=== PATIENT | male | born 1960 | race African-American/Black ===

== ENCOUNTER 2016-03-15 09:00 | Emergency (ER) | payer OTHER, MEDICARE ==
[~2016-03-15] VITALS: Ht 200.7 cm; Wt 112.0 kg
[~2016-03-15 09:00] MED LIST: AMLODIPINE10 MG PO; APAP325 MG PO; APRESOLINE50 MG PO; ASPIR 8181 MG PO; ASPIRIN CHILDRE81 MG PO; ATORVASTATIN CA80 MG PO; FOLIC ACID 1 MG PO; FUROSEMIDE20 MG PO; GLUCOPHAGE500 MG PO; HYDRODIURIL 2525 MG PO; HYDROMORPHONE HC2 MG PO; IBUPROFEN800 MG PO; LABETALOL HYDR100 MG PO; LASIX20 MG PO; LISINOPRIL10 MG PO; LISINOPRIL40 MG PO; LOPRESSOR50 MG PO; METFORMIN HCL500 MG PO; NORVASC 10MG10 MG PO; PERCOCET 325 MG1 TA2 PO; PREDNISONE 10MG10 M1 PO; PREDNISONE10 MG PO; PROCARDIA XL30 MG PO; TRANDATE-NORMO100 MG PO; TRANDATE-NORMO200 MG PO; TRICOR 48MG48 MG PO; VITAMIN B1100 MG PO; ZOFRAN4 M1 SL
--- NOTE | 2016-03-15 11:16 | ED GI/GU/ABDOMINAL COMPLAINT ---
History of Present Illness General Chief Complaint: Abdominal Pain/Flank Pain Stated Complaint: LBP CHRONIC/ABD PAIN X 4 DAYS Source: patient Exam Limitations: no limitations Vital Signs & Intake/Output Vital Signs & Intake/Output Vital Signs Date Time Temp Pulse Resp B/P Pulse O2 O2 Flow FiO2 Ox Delivery Rate 03/15 1421 97.6 85 81 137/83 99 Room Air 03/15 1143 Room Air Room Air 03/15 1143 97.4 71 15 163/90 100 Room Air Room Air 03/15 0909 97.0 80 18 179/100 98 Room Air Allergies Coded Allergies: MDX - Lisinopril (LISINOPRIL) (Severe, ANGIODEMA 05/25/14) MDX - Gabapentin (GABAPENTIN) (BLACK SPOTS ON TONGUE 09/10/13) MDX - Gemfibrozil (From LOPID) (UNKNOWN-PER PT DOES NOT REMEMBER 09/20/14) MDX - Minocycline (MINOCYCLINE) (SPOTS ON TONGUE 11/02/14) Reconcile Medications Acetaminophen (Apap) 325 MG TABLET 2 TAB PO PRN PAIN (Reported) Aspirin (Children's Aspirin) 81 MG TAB.CHEW 1 TAB PO DAILY HEART HEALTH ( Reported) Atorvastatin Calcium (Lipitor) 80 MG TABLET 1 TAB PO AT BEDTIME CHOLESTEROL ( Reported) Furosemide 20 MG TABLET 1 TAB PO DAILY LEG EDEMA (Reported) Hydralazine Hydrochloride (Apresoline) 50 MG TAB 50 MG PO TID BP Hydromorphone HCl (Dilaudid) 2 MG TABLET 1 TAB PO 4XDP PRN pain Ibuprofen 800 MG TAB 1 TAB PO TID PRN PAIN Metformin Hydrochloride (Metformin HCl) 500 MG TAB 1 TAB PO BID DIABETES ( Reported) Metoprolol Tartrate (Lopressor) 50 MG TAB 1 TAB PO BID BP (Reported) Ondansetron (Zofran Odt) 4 MG TAB.RAPDIS 1 TAB SL Q4-6 PRN NAUSEA OXYCODONE HCL/ACETAMINOPHEN (Percocet 5-325 MG Tablet) 325 MG/5 MG TAB 1-2 TAB PO Q4-6 PRN PRN PAIN TEN...[id number] OXYCODONE HCL/ACETAMINOPHEN (Percocet 5-325 MG Tablet) 325 MG/5 MG TAB 1-2 TAB PO Q4-6 PRN PRN PAIN Triage Note: C/O MID ABDOMINAL PAIN X 4 DAYS RADIATING TO R CHEST. VOMITED 2 DAYS AGO. STATES HE HAS CHRONIC BACK AND R CHEST PAIN DUE TO NERVE DAMAGE. Triage Nurses Notes Reviewed? yes HPI: 4 days of epigastric pain, nv x2 d ago , radiating to the back. hx of choronic back pain. no fever, no illness. hx of pancreatits as few years ago due to etoh and has not had any etoh since. no diarrhea, no tx thus far. no modifying factors. pain is severe, no abd surgery. (BENJAMIN SOUZA) Past History Travel History Traveled to [place] past 21 day No Medical History Any Pertinent Medical History? see below for history Neurological: seizure Cardiovascular: hypertension Gastrointestinal: pancreatitis Psychiatric: alcohol dependence Endocrine: diabetes History of MRSA: No History of VRE: No History of CDIFF: No Surgical History Surgical History: non-contributory Psychosocial History Who do you live with Significant Other Services at Home None What is your primary language Guamanian Tobacco Use: Current Daily Use Daily Tobacco Use Amount/Type: => 5 Cigarettes daily ETOH Use: denies use Family History Hx Contributory? No (BENJAMIN SOUZA) Review of Systems Review of Systems Constitutional: Reports: see HPI. EENTM: Reports: no symptoms. Respiratory: Reports: no symptoms. Cardiovascular: Reports: no symptoms. GI: Reports: no symptoms. Genitourinary: Reports: no symptoms. Musculoskeletal: Reports: see HPI. Skin: Reports: no symptoms. Neurological/Psychological: Reports: no symptoms. Hematologic/Endocrine: Reports: no symptoms. Immunologic/Allergic: Reports: no symptoms. All Other Systems: Reviewed and Negative (BENJAMIN SOUZA) Physical Exam Physical Exam General Appearance: well developed/nourished Gastrointestinal: normal bowel sounds, soft, TENDERNESS TO THE MID ABD REGION MAXIMALLY, MILD DIFFUSE ABDOMINAL TENDERENESS Comments: Well-developed well-nourished , mild apparent distress due to pain, holding his mid abdominal region. HEENT: Atraumatic, extraocular motion intact Neck: Supple, no lymphadenopathy Back: Nontender Respiratory: No respiratory distress clear to auscultation bilateral. Heart: Regular rate and rhythm no murmur Extremities: No edema, full range of motion Neuro: Alert and oriented x3 Psych: Mood affect normal, normal memory normal judgment. Skin: Warm and dry, no rash on exposed skin Core Measures ACS in differential dx? No Severe Sepsis Present: No Septic Shock Present: No (BENJAMIN SOUZA) Progress Differential Diagnosis: AAA, AMI, appendicitis, biliary colic, bowel obstruction , colon cancer, cholecystitis, diverticulitis, epididymitis, esophageal varices, gastritis, hepatitis, hernia, hemorrhoids, ischemic bowel, inflamm bowel dis, Cynthia-Janis tear, orchitis, pancreatitis, prostatitis, peptic ulcer, PUD/GERD, perforated viscous, pyelonephritis, SBO, STD, testicular torsion, ureterolithiasis, urinary retention, urethritis, UTI/pyelo Plan of Care: Orders Procedure Date/time Status Saline Lock 03/15 1119 Active LIPASE 03/15 1119 Complete ETHANOL 03/15 111 Complete COMPREHENSIVE METABOLIC PANEL 03/15 111 Complete CBC WITHOUT DIFFERENTIAL 03/15 111 Complete AMYLASE 03/15 111 Complete Laboratory Tests 03/15/16 1127: Anion Gap 13, Estimated GFR > 60, BUN/Creatinine Ratio 15.0, Glucose 108 H, Calcium 9.5, Total Bilirubin 0.5, AST 16 L, ALT 34, Alkaline Phosphatase 133 H , Total Protein 7.7, Albumin 3.7, Globulin 4.0, Albumin/Globulin Ratio 0.9 L, Amylase 109, Lipase 536 H, CBC w Diff NO MAN DIFF REQ, RBC 4.80, MCV 82.6, MCH 27.3, RDW 14.1, MPV 6.6 L, Gran % 80.1 H, Lymphocytes % 12.8 L, Monocytes % 5.2, Eosinophils % 1.7, Basophils % 0.2, Absolute Granulocytes 10.2 H, Absolute Lymphocytes 1.6, Absolute Monocytes 0.7 H, Absolute Eosinophils 0.2, Absolute Basophils 0, PUBS MCHC 33.0, Serum Alcohol < 10.0 Diagnostic Imaging: Viewed by Me: CT Scan. Discussed w/RAD: CT Scan. Radiology Impression: PATIENT: ELBA BRANCH PRESENT AGE: 55 PATIENT ACCOUNT NO: [id number] : 61 LOCATION: [facility] ORDERING PHYSICIAN: BENJAMIN JETT SERVICE DATE: 03/15/16-1212 EXAM TYPE : CAT - CT ABD & PELVIS W IV CONTRAST EXAMINATION: CT ABDOMEN AND PELVIS WITH CONTRAST CLINICAL INFORMATION: Diffuse abdominal pain. COMPARISON: CT abdomen and pelvis 09/20/2014. TECHNIQUE: Multidetector volumetric imaging was performed of the abdomen and pelvis before and after the IV administration of 94 mL of Optiray 320 intravenous contrast. Sagittal and coronal reformatted images were obtained on the technologist's workstation. DLP: 954 mGy-cm. FINDINGS: LUNG BASES: There is bibasilar atelectasis. LIVER, GALLBLADDER, AND BILIARY TREE: The liver is normal in size, shape, and attenuation. No focal hepatic lesion or biliary ductal dilatation is present. There is a radiopaque stone in the dependent portion of gallbladder without wall thickening. PANCREAS: There are large lobulated cysts arising from the pancreatic head and body extending to the ariel hepatis and subhepatic space suggestive of multiple pseudocysts. The central pancreatic duct extending to the tail is dilated. The tail of the pancreas appears atrophic. Scattered calcifications are seen in the pancreatic head and uncinate process . There is significant soft tissue stranding seen in the small bowel mesentery superior and inferior to the pancreas. Also visualized is mild fluid collection along the right paracolic gutter and pelvis. Recurrent pancreatitis is strongly suspected. SPLEEN: Unremarkable. ADRENAL GLANDS: Unremarkable. KIDNEYS AND URETERS: The kidneys are normal in size, shape, and attenuation. A 6 mm nonobstructive radiopaque calculi is seen in lower pole right kidney. No additional radiopaque calculi seen. There is no hydronephrosis on either side. BLADDER: There is mild bladder wall thickening but no enhancing bladder wall lesion or radiopaque stone seen. GASTROINTESTINAL TRACT: Scattered stool is seen in the colon. Small bowel loops are unremarkable. There is no free air. However, there is a small amount of free fluid in the pelvis. ABDOMINAL WALL: No significant hernia is appreciated. LYMPH NODES: Normal. VASCULAR: Unremarkable. PELVIC VISCERA: There is a small amount of free fluid in the pelvis. The prostate gland is normal size. A prominent left inguinal canal with fat within is noted. OSSEOUS STRUCTURES: There are multiple healed lower left rib fractures. No lytic or sclerotic process seen. IMPRESSION: Moderate-sized pseudocyst arising from the pancreatic head and the body and extending to the ariel hepatis an along the inferior edge of the liver. There is now diffuse fat stranding extending superior and inferior to pancreas with small amount of fluid in the pelvis and right paracolic gutter suspicious for RECURRENT ACUTE PANCREATITIS. Dilation of central pancreatic duct and mild atrophy of tail of pancreas is noted. There are scattered calcifications seen in the body and the uncinate process of pancreas from chronic pancreatitis. Gallstones without wall thickening. Nonobstructive radiopaque calculi lower pole right kidney. DICTATED BY: TARSHA POWERS MD DATE/TIME DICTATED:03/15/161342 MODEL DRESSER:THERESE Initial ED EKG: none Comments: Patient treated with IV fluids and IV pain medication, morphine. Suspect pancreatitis, we'll obtain labs. Patient laboratory values show a mildly elevated white blood cell count and pancreas enzymes slightly elevated. We'll pursue CT scan to evaluate for intra- abdominal infection. Patient still with moderate amount of pain, given 1 mg of Dilaudid IV. CT scan suggestive of acute pancreatitis and pancreatic pseudocyst. Discussed with patient. Recommended general surgery follow-up, upon further reevaluation' s patient is feeling better, his pain is controlled his nausea is controlled and he is feeling well, he is stable for discharge home. Clear liquid diet recommended (BENJAMIN SOUZA) Departure Departure Disposition: HOME OR SELF CARE Condition: Stable Clinical Impression Primary Impression: Pancreatitis Qualifiers: Chronicity: acute Pancreatitis type: unspecified pancreatitis type Acute pancreatitis complication: no infection or necrosis Qualified Code: K85.90 - Acute pancreatitis without necrosis or infection, unspecified Secondary Impressions: Pseudocyst, pancreas Referrals: MARIJA RODGERS,KIM (PCP/Family) ABHI RODGERS,PLACIDO Bowling. Additional Instructions: Clear liquids for the next few days, advance her diet as tolerated. Take pain medication as needed and follow-up with general surgery for the cyst noted in the pancreas. Departure Forms: Customer Survey General Discharge Information Prescriptions: Current Visit Scripts Hydromorphone HCl (Dilaudid) 1 TAB PO 4XDP PRN pain #15 TAB (BENJAMIN SOUZA) PA/NATURAL RESOURCE OFFICER Co-Sign Statement Statement: ED Attending supervision documentation- [] I saw and evaluated the patient. I have also reviewed all the pertinent lab results and diagnostic results. I agree with the findings and the plan of care as documented in the PA's/NATURAL RESOURCE OFFICER's documentation. x I have reviewed the ED Record and agree with the PA's/NATURAL RESOURCE OFFICER's documentation. [] Additions or exceptions (if any) to the PAs/NATURAL RESOURCE OFFICER's note and plan are summarized below: [] (JUAN RODGERS,RITA)
[2016-03-15 11:33] LABS: ABSOLUTE BASOPHIL COUNT 0 /CUMM (0.0-0.2); ABSOLUTE EOSINOPHIL COUNT 0.2 /CUMM (0.0-0.7); ABSOLUTE GRANULOCYTE CT 10.2 /CUMM (1.4-6.5); ABSOLUTE LYMPH COUNT 1.6 /CUMM (1.2-3.4); ABSOLUTE MONOCYTE COUNT 0.7 /CUMM (0.10-0.60); BASOPHIL % 0.2 % (0.0-2.0); EOSINOPHIL % 1.7 % (0-5); GRANULOCYTE % 80.1 % (42.2-75.2); HEMATOCRIT 39.7 % (42-52); MEAN CORPUSCULAR HGB 27.3 PG (27.0-31.0); MEAN CORPUSCULAR VOLUME 82.6 FL (80.0-94.0); MEAN PLATELET VOLUME 6.6 FL (7.4-10.4); PLATELET COUNT 388 /CUMM (130-400); RBC DISTRIBUTION WIDTH 14.1 % (11.5-14.5); WHITE BLOOD CELL COUNT 12.8 /CUMM (4.8-10.8)
[2016-03-15 14:21] VITALS: BP 137/83
--- NOTE | 2016-03-15 14:28 | CT SCAN REPORT ---
EXAMINATION: CT ABDOMEN AND PELVIS WITH CONTRAST CLINICAL INFORMATION: Diffuse abdominal pain. COMPARISON: CT abdomen and pelvis 09/20/2014. TECHNIQUE: Multidetector volumetric imaging was performed of the abdomen and pelvis before and after the IV administration of 94 mL of Optiray 320 intravenous contrast. Sagittal and coronal reformatted images were obtained on the technologist's workstation. DLP: 954 mGy-cm. FINDINGS: LUNG BASES: There is bibasilar atelectasis. LIVER, GALLBLADDER, AND BILIARY TREE: The liver is normal in size, shape, and attenuation. No focal hepatic lesion or biliary ductal dilatation is present. There is a radiopaque stone in the dependent portion of gallbladder without wall thickening. PANCREAS: There are large lobulated cysts arising from the pancreatic head and body extending to the ariel hepatis and subhepatic space suggestive of multiple pseudocysts. The central pancreatic duct extending to the tail is dilated. The tail of the pancreas appears atrophic. Scattered calcifications are seen in the pancreatic head and uncinate process . There is significant soft tissue stranding seen in the small bowel mesentery superior and inferior to the pancreas. Also visualized is mild fluid collection along the right paracolic gutter and pelvis. Recurrent pancreatitis is strongly suspected. SPLEEN: Unremarkable. ADRENAL GLANDS: Unremarkable. KIDNEYS AND URETERS: The kidneys are normal in size, shape, and attenuation. A 6 mm nonobstructive radiopaque calculi is seen in lower pole right kidney. No additional radiopaque calculi seen. There is no hydronephrosis on either side. BLADDER: There is mild bladder wall thickening but no enhancing bladder wall lesion or radiopaque stone seen. GASTROINTESTINAL TRACT: Scattered stool is seen in the colon. Small bowel loops are unremarkable. There is no free air. However, there is a small amount of free fluid in the pelvis. ABDOMINAL WALL: No significant hernia is appreciated. LYMPH NODES: Normal. VASCULAR: Unremarkable. PELVIC VISCERA: There is a small amount of free fluid in the pelvis. The prostate gland is normal size. A prominent left inguinal canal with fat within is noted. OSSEOUS STRUCTURES: There are multiple healed lower left rib fractures. No lytic or sclerotic process seen. IMPRESSION: Moderate-sized pseudocyst arising from the pancreatic head and the body and extending to the ariel hepatis an along the inferior edge of the liver. There is now diffuse fat stranding extending superior and inferior to pancreas with small amount of fluid in the pelvis and right paracolic gutter suspicious for RECURRENT ACUTE PANCREATITIS. Dilation of central pancreatic duct and mild atrophy of tail of pancreas is noted. There are scattered calcifications seen in the body and the uncinate process of pancreas from chronic pancreatitis. Gallstones without wall thickening. Nonobstructive radiopaque calculi lower pole right kidney.
[2016-03-15] MEDS ORDERED: DILAUDID2 M1 PO (14:35)
== END 2016-03-15 14:38 ==
LOC: ERH 09:00
PROVIDERS: Physician Assistant Surgical
DX: K85.90 Acute pancreatitis without necrosis or infection, unspecified (principal); K86.3 Pseudocyst of pancreas
CPT/HCPCS: 74177; 96361; 96374; 96375; G0480

== ENCOUNTER 2016-04-12 21:58 | Emergency (ER) | payer OTHER, MEDICARE ==
[~2016-04-12] VITALS: Ht 200.7 cm; Wt 113.4 kg
[~2016-04-12 21:58] MED LIST changes: +DILAUDID2 M1 PO
--- NOTE | 2016-04-12 22:13 | ED GI/GU/ABDOMINAL COMPLAINT ---
History of Present Illness General Chief Complaint: Abdominal Pain/Flank Pain Stated Complaint: ABD PAIN Source: patient Exam Limitations: no limitations Vital Signs & Intake/Output Vital Signs & Intake/Output Vital Signs Date Time Temp Pulse Resp B/P Pulse O2 O2 Flow FiO2 Ox Delivery Rate 04/13 0058 96.7 81 20 196/104 95 Room Air 04/12 2212 176/84 04/12 2200 96.8 89 20 202/107 98 Room Air ED Intake and Output 04/13 0000 04/12 1200 Intake Total 1000 Output Total Balance 1000 Intake, IV 1000 Patient 250 lb Weight Allergies Coded Allergies: lisinopril (Severe, ANGIODEMA 04/12/16) gemfibrozil (From Lopid) (UNKNOWN 04/12/16) minocycline (UNKNOWN 04/12/16) gabapentin (Mild, BLACK DOTS ON TONGUE 04/13/16) Reconcile Medications Acetaminophen (Apap) 325 MG TABLET 2 TAB PO PRN PAIN (Reported) Aspirin (Children's Aspirin) 81 MG TAB.CHEW 1 TAB PO DAILY HEART HEALTH ( Reported) Atorvastatin Calcium (Lipitor) 80 MG TABLET 1 TAB PO AT BEDTIME CHOLESTEROL ( Reported) Furosemide 20 MG TABLET 1 TAB PO DAILY LEG EDEMA (Reported) Hydralazine Hydrochloride (Apresoline) 50 MG TAB 50 MG PO TID BP Hydromorphone HCl (Dilaudid) 2 MG TABLET 1 TAB PO 4XDP PRN pain Ibuprofen 800 MG TAB 1 TAB PO TID PRN PAIN Metformin Hydrochloride (Metformin HCl) 500 MG TAB 1 TAB PO BID DIABETES ( Reported) Metoprolol Tartrate (Lopressor) 50 MG TAB 1 TAB PO BID BP (Reported) Omeprazole Magnesium (Prilosec Otc) 20 MG TABLET.DR 1 TAB PO DAILY gastritis/ stomach pain Ondansetron (Zofran Odt) 4 MG TAB.RAPDIS 1 TAB SL TID PRN nausea Oxycodone HCl 5 MG TABLET 1-2 TAB PO TID PRN pain sixteen...[id number] Triage Note: PT TO ED C/O RIGHT SIDE ABD PAIN RADIATING TO BACK X A COUPLE HOURS. DENIES N/V/D/FEVERS/CHILLS. ATE HOT DOGS AT 1500 TODAY. UNABLE TO SIT IN TRIAGE DUE TO PAIN Triage Nurses Notes Reviewed? yes Onset: Gradual Duration: day(s): Timing: recent history Quality/Severity: cramping Location: epigastric Radiation: no radiation Activities at Onset: eating Prior Abdominal Problems: similar symptoms Modifying Factors: Worsens With: palpation. Associated Symptoms: abdominal pain, nausea/vomiting HPI: 55-year-old gentleman, history of chronic pancreatitis, presents with midepigastric abdominal pain for the past 3-4 hours. He states that he ate several hot dogs for dinner. The pain began a few hours afterwards. He notes mild nausea without diarrhea chest pain shortness of breath or fever. He had similar symptoms several weeks ago, that resolved with supportive measures. He denies alcohol or drug use. He is otherwise well. Past History Travel History Traveled to [place] past 21 day No Medical History Any Pertinent Medical History? see below for history Neurological: seizure Cardiovascular: hypertension Gastrointestinal: pancreatitis Psychiatric: alcohol dependence Endocrine: diabetes History of MRSA: No History of VRE: No History of CDIFF: No Surgical History Surgical History: non-contributory Psychosocial History Who do you live with Significant Other Services at Home None What is your primary language Lao Tobacco Use: Current Daily Use Daily Tobacco Use Amount/Type: => 5 Cigarettes daily ETOH Use: denies use Illicit Drug Use: denies illicit drug use Family History Hx Contributory? No Review of Systems Review of Systems Constitutional: Reports: no symptoms. EENTM: Reports: no symptoms. Respiratory: Reports: no symptoms. Cardiovascular: Reports: no symptoms. GI: Reports: no symptoms. Genitourinary: Reports: no symptoms. Musculoskeletal: Reports: no symptoms. Skin: Reports: no symptoms. Neurological/Psychological: Reports: no symptoms. Hematologic/Endocrine: Reports: no symptoms. Immunologic/Allergic: Reports: no symptoms. All Other Systems: Reviewed and Negative Physical Exam Physical Exam General Appearance: well developed/nourished, moderate distress Head: atraumatic, normal appearance Eyes: Bilateral: normal appearance. Ears, Nose, Throat, Mouth: hearing grossly normal Neck: normal inspection, supple, full range of motion Respiratory: normal breath sounds, chest non-tender, no respiratory distress, quiet respiration, lungs clear Cardiovascular: regular rate/rhythm Gastrointestinal: normal bowel sounds, soft, MIDEPIGASTRIC AND LEFT UPPER QUADRANT TENDERNESS TO PALPATION. nO REBOUND NO GUARDING. Back: normal inspection Extremities: normal range of motion Neurologic/Psych: no motor/sensory deficits, awake, alert, oriented x 3 Skin: intact, normal color, warm/dry Core Measures ACS in differential dx? No Severe Sepsis Present: No Septic Shock Present: No Progress Differential Diagnosis: PANCREATITIS VERSUS GASTROENTERITIS VERSUS GASTRITIS VERSUS REFLUX VERSUS OTHER. Plan of Care: Orders Procedure Date/time Status Add-on Test (ER Only) 04/12 2321 Active LACTIC ACID 04/12 2234 Complete ETHANOL 04/12 2234 Complete URINALYSIS 04/12 2213 Complete TROPONIN LEVEL 04/12 2204 Complete LIPASE 04/12 2204 Complete COMPREHENSIVE METABOLIC PANEL 04/12 2204 Complete CBC WITHOUT DIFFERENTIAL 04/12 2204 Complete AMYLASE 04/12 2204 Complete EKG 04/12 2204 Active Laboratory Tests 04/13/167: Lactic Acid Cancelled 04/12/162256: Urine Color YEL, Urine Clarity CLEAR, Urine pH 7.0, Ur Specific Baxter 1.020, Urine Protein 100 H, Urine Ketones NEG, Urine Nitrite NEG, Urine Bilirubin NEG, Urine Urobilinogen 0.2, Ur Leukocyte Esterase NEG, Ur Microscopic SEDIMENT EXAMINED, Urine RBC 15-25 H, Urine WBC 1-3 H, Ur Epithelial Cells FEW, Urine Hemoglobin SMALL H, Urine Glucose NEG 04/12/162234: Anion Gap 11, Estimated GFR > 60, BUN/Creatinine Ratio 12.7, Glucose 121 H, Lactic Acid 0.9, Calcium 9.2, Total Bilirubin 0.4, AST 15 L, ALT 29, Alkaline Phosphatase 93, Troponin I < 0.01, Total Protein 7.4, Albumin 3.9, Globulin 3.5, Albumin/Globulin Ratio 1.1, Amylase 86, Lipase 708 H, CBC w Diff NO MAN DIFF REQ, RBC 4.74, MCV 83.0, MCH 27.6, RDW 14.9 H, MPV 7.2 L, Gran % 79.4 H, Lymphocytes % 13.5 L, Monocytes % 4.8, Eosinophils % 1.9, Basophils % 0.4, Absolute Granulocytes 11.8 H, Absolute Lymphocytes 2.0, Absolute Monocytes 0.7 H, Absolute Eosinophils 0.3, Absolute Basophils 0.1, PUBS MCHC 33.3, Serum Alcohol < 10.0 04/12/162217: Serum Alcohol Cancelled 04/12/162216: Lactic Acid Cancelled Diagnostic Imaging: Viewed by Me: CT Scan. Discussed w/RAD: CT Scan. Radiology Impression: abd/pelvic ct... chronic pancreatitis, 7mm non obstructing stone... full report below Initial ED EKG: normal axis, normal intervals, normal p-waves, normal QRS complex, normal sinus rhythm Comments: PATIENT: ELBA BRANCH PRESENT AGE: 55 PATIENT ACCOUNT NO: [id number] : 61 LOCATION: [facility] ORDERING PHYSICIAN: KIM VOGEL MD SERVICE DATE: 04/12/16 EXAM TYPE: CAT - CT ABD & PELVIS W/O IV CONTRAS EXAMINATION: CT ABDOMEN AND PELVIS WITHOUT CONTRAST CLINICAL INFORMATION: Right flank pain. COMPARISON: Prior CT examinations of the abdomen and pelvis, most recently 03/15/2016. TECHNIQUE: Multidetector volumetric imaging was performed from the superior aspect of the liver through the pubic symphysis. Sagittal and coronal reformatted images were obtained on the technologist's workstation. DLP: 825.40 mGy-cm FINDINGS: LUNG BASES: The visualized lung bases are unremarkable. LIVER, GALLBLADDER, AND BILIARY TREE: The liver is normal in size, shape, and attenuation. No focal hepatic lesion or biliary ductal dilatation is present. There are small layering gallstones, without gallbladder wall thickening or obvious pericholecystic inflammatory changes. PANCREAS: There are diffuse pancreatic calcifications, consistent with chronic pancreatitis. There is pancreatic ductal dilatation to 5 mm. There is interim decrease in fat stranding anterior and caudal to the pancreatic head. 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 These are poorly defined, without the benefit of intravenous contrast. The largest shows a maximal diameter of approximately 4.0 cm. SPLEEN: Unremarkable. ADRENAL GLANDS: Unremarkable. KIDNEYS AND URETERS: The kidneys are normal in size, shape, and attenuation. A 7 mm nonobstructing calculus is redemonstrated at the lower pole of the right kidney. No left renal or bilateral ureteric calculi are seen. There is no bilateral hydronephroureter. No perinephric stranding. BLADDER: Unremarkable. GASTROINTESTINAL TRACT: The small and large bowel are unremarkable. The appendix is unremarkable. ABDOMINAL WALL: There is a mild diastases rectus. There is a small fat-containing left inguinal hernia. LYMPH NODES: Normal. VASCULAR: There is mild aortoiliac atherosclerotic change. No abdominal aortic aneurysm is seen. PELVIC VISCERA: The prostate and seminal vesicles are unremarkable. OSSEOUS STRUCTURES: There is moderate lower thoracic and mild lumbar spondylosis. There is mild degenerative disc disease at L5-S1. No acute or aggressive osseous abnormality seen. IMPRESSION: 1. Findings are consistent with interim improvement in previously seen pancreatitis, with diminished peripancreatic fat stranding. 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 2. There is cholelithiasis, without cholecystitis or choledocholithiasis. 3. A 7 mm nonobstructing right renal calculus is seen. 4. There is a small fat-containing left internal hernia. 5. There are thoracolumbar degenerative changes. DICTATED BY: BRYNN LUEVANO MD DATE/TIME DICTATED:04/12/162246 PRIVATE INVESTIGATOR:THERESE DATE/TIME TRANSCRIBED:04/12/162246 CONFIDENTIAL, DO NOT COPY WITHOUT APPROPRIATE AUTHORIZATION. <Electronically signed in Other Vendor System> SIGNED BY: BRYNN LUEVANO MD 04/12/16 2308 Departure Departure Disposition: HOME OR SELF CARE Condition: Stable Clinical Impression Primary Impression: Abdominal pain Secondary Impressions: Chronic pancreatitis Referrals: KIM DUTTON MD (PCP/Family) Departure Forms: Customer Survey General Discharge Information Prescriptions: Current Visit Scripts Oxycodone HCl 1-2 TAB PO TID PRN pain #16 TAB sixteen...[id number] Omeprazole Magnesium (Prilosec Otc) 1 TAB PO DAILY #30 TAB Ondansetron (Zofran Odt) 1 TAB SL TID PRN nausea #10 TAB Ref 1 Comments 04/13/16, 1:35am... pt feeling better... resting comfortably... discussed results at length, advised bowel rest, low fat diet, close follow up, supportive medications.
[2016-04-12 22:44] LABS: ABSOLUTE BASOPHIL COUNT 0.1 /CUMM (0.0-0.2); ABSOLUTE EOSINOPHIL COUNT 0.3 /CUMM (0.0-0.7); ABSOLUTE GRANULOCYTE CT 11.8 /CUMM (1.4-6.5); ABSOLUTE MONOCYTE COUNT 0.7 /CUMM (0.10-0.60); BASOPHIL % 0.4 % (0.0-2.0); EOSINOPHIL % 1.9 % (0-5); GRANULOCYTE % 79.4 % (42.2-75.2); HEMATOCRIT 39.3 % (42-52); MEAN CORPUSCULAR HGB 27.6 PG (27.0-31.0); MEAN CORPUSCULAR HGB CONC 33.3 G/DL (33.0-37.0); MEAN PLATELET VOLUME 7.2 FL (7.4-10.4); PLATELET COUNT 228 /CUMM (130-400); RBC DISTRIBUTION WIDTH 14.9 % (11.5-14.5); RED BLOOD CELL CT 4.74 /CUMM (4.70-6.10); WHITE BLOOD CELL COUNT 14.9 /CUMM (4.8-10.8)
--- NOTE | 2016-04-12 23:02 | CT SCAN REPORT ---
EXAMINATION: CT ABDOMEN AND PELVIS WITHOUT CONTRAST CLINICAL INFORMATION: Right flank pain. COMPARISON: Prior CT examinations of the abdomen and pelvis, most recently 03/15/2016. TECHNIQUE: Multidetector volumetric imaging was performed from the superior aspect of the liver through the pubic symphysis. Sagittal and coronal reformatted images were obtained on the technologist's workstation. DLP: 825.40 mGy-cm FINDINGS: LUNG BASES: The visualized lung bases are unremarkable. LIVER, GALLBLADDER, AND BILIARY TREE: The liver is normal in size, shape, and attenuation. No focal hepatic lesion or biliary ductal dilatation is present. There are small layering gallstones, without gallbladder wall thickening or obvious pericholecystic inflammatory changes. PANCREAS: There are diffuse pancreatic calcifications, consistent with chronic pancreatitis. There is pancreatic ductal dilatation to 5 mm. There is interim decrease in fat stranding anterior and caudal to the pancreatic head. 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 These are poorly defined, without the benefit of intravenous contrast. The largest shows a maximal diameter of approximately 4.0 cm. SPLEEN: Unremarkable. ADRENAL GLANDS: Unremarkable. KIDNEYS AND URETERS: The kidneys are normal in size, shape, and attenuation. A 7 mm nonobstructing calculus is redemonstrated at the lower pole of the right kidney. No left renal or bilateral ureteric calculi are seen. There is no bilateral hydronephroureter. No perinephric stranding. BLADDER: Unremarkable. GASTROINTESTINAL TRACT: The small and large bowel are unremarkable. The appendix is unremarkable. ABDOMINAL WALL: There is a mild diastases rectus. There is a small fat-containing left inguinal hernia. LYMPH NODES: Normal. VASCULAR: There is mild aortoiliac atherosclerotic change. No abdominal aortic aneurysm is seen. PELVIC VISCERA: The prostate and seminal vesicles are unremarkable. OSSEOUS STRUCTURES: There is moderate lower thoracic and mild lumbar spondylosis. There is mild degenerative disc disease at L5-S1. No acute or aggressive osseous abnormality seen. IMPRESSION: 1. Findings are consistent with interim improvement in previously seen pancreatitis, with diminished peripancreatic fat stranding. 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 2. There is cholelithiasis, without cholecystitis or choledocholithiasis. 3. A 7 mm nonobstructing right renal calculus is seen. 4. There is a small fat-containing left internal hernia. 5. There are thoracolumbar degenerative changes.
[2016-04-13 00:58] VITALS: BP 196/104
[2016-04-13] MEDS ORDERED: ZOFRAN ODT4 M1 SL (01:38)
[2016-04-13] MEDS ORDERED: PRILOSEC OTC20 M1 PO (01:38)
[2016-04-13] MEDS ORDERED: OXYCODONE HCL5 M1 PO (01:38)
== END 2016-04-13 01:45 ==
LOC: ERH 21:58
PROVIDERS: Pediatrics
DX: K86.1 Other chronic pancreatitis (principal)
CPT/HCPCS: 74176; 81001; 93005; 93010; 96374; 96375; 96376; G0480

== ENCOUNTER 2016-07-19 03:58 | Emergency (ER) | payer OTHER, MEDICARE ==
[~2016-07-19] VITALS: Ht 200.7 cm; Wt 108.9 kg
[~2016-07-19 03:58] MED LIST changes: +OXYCODONE HCL5 M1 PO; +PRILOSEC OTC20 M1 PO; +ZOFRAN ODT4 M1 SL
--- NOTE | 2016-07-19 04:13 | ED UPPER/LOWER EXTREMITY COMPL ---
History of Present Illness General Chief Complaint: Lower Extremity Problems Stated Complaint: LEFT KNEE PAIN Source: patient Exam Limitations: no limitations Vital Signs & Intake/Output Vital Signs & Intake/Output Vital Signs Date Time Temp Pulse Resp B/P B/P Pulse O2 O2 Flow FiO2 Mean Ox Delivery Rate 07/19 0406 97.6 73 21 171/96 99 Room Air Allergies Coded Allergies: lisinopril (Severe, ANGIODEMA 04/12/16) gemfibrozil (From Lopid) (UNKNOWN 04/12/16) minocycline (UNKNOWN 04/12/16) gabapentin (Mild, BLACK DOTS ON TONGUE 04/13/16) Reconcile Medications Acetaminophen (Apap) 325 MG TABLET 2 TAB PO PRN PAIN (Reported) Aspirin (Children's Aspirin) 81 MG TAB.CHEW 1 TAB PO DAILY HEART HEALTH ( Reported) Atorvastatin Calcium (Lipitor) 80 MG TABLET 1 TAB PO AT BEDTIME CHOLESTEROL ( Reported) Diclofenac Sodium (Voltaren) 1 % GEL..GRAM. 1 GM TOP 4 TIMES/DAY PAIN apply to affected area(s) Furosemide 20 MG TABLET 1 TAB PO DAILY LEG EDEMA (Reported) Hydralazine Hydrochloride (Apresoline) 50 MG TAB 50 MG PO TID BP Hydromorphone HCl (Dilaudid) 2 MG TABLET 1 TAB PO 4XDP PRN pain Ibuprofen 800 MG TAB 1 TAB PO TID PRN PAIN Metformin Hydrochloride (Metformin HCl) 500 MG TAB 1 TAB PO BID DIABETES ( Reported) Metoprolol Tartrate (Lopressor) 50 MG TAB 1 TAB PO BID BP (Reported) Naproxen 500 MG TABLET 1 TAB PO BID PRN PAIN TAKE WITH FOOD Omeprazole Magnesium (Prilosec Otc) 20 MG TABLET.DR 1 TAB PO DAILY gastritis/ stomach pain Ondansetron (Zofran Odt) 4 MG TAB.RAPDIS 1 TAB SL TID PRN nausea Oxycodone HCl 5 MG TABLET 1-2 TAB PO TID PRN pain sixteen...[id number] Oxycodone HCl/Acetaminophen (Percocet 5-325 MG Tablet) 5 MG-325 MG TABLET 1 TAB PO BID BREAKTHROUGH PAIN Triage Nurses Notes Reviewed? yes Onset: Abrupt Duration: day(s): (2) Timing: no prior history Severity: moderate, severe Pain/Injury Location: Left: Knee. Method of Injury: unknown Modifying Factors: Worsens With: movement. HPI: This is a 56-year-old Afro-[place] male who presents to the ER for chief complaint of worsening left knee pain over the last couple of days. He states he didn't hurt it that he may have twisted it. History of similar symptoms in the past that resolved after treatment with pain medication. He denies any history of arthritis to the knee. Patient denies any fever or chills. Pain is just at the insertion site of the quadriceps tendon. He did not try taking anything for pain. He never followed up with her. Past with an orthopedist. He thinks he might have had an x-ray done of the left knee a few years ago at [facility] Past History Travel History Traveled to [place] past 21 day No Medical History Any Pertinent Medical History? see below for history Neurological: seizure Cardiovascular: hypertension Gastrointestinal: pancreatitis Psychiatric: alcohol dependence Endocrine: diabetes History of MRSA: No History of VRE: No History of CDIFF: No Surgical History Surgical History: non-contributory Psychosocial History Who do you live with Significant Other Services at Home None What is your primary language Scottish Family History Hx Contributory? No Review of Systems Review of Systems Constitutional: Denies: chills, fever. EENTM: Reports: no symptoms. Respiratory: Denies: cough, short of breath. Cardiovascular: Denies: chest pain, palpitations. Gastrointestinal/Abdominal: Reports: no symptoms. Genitourinary: Reports: no symptoms. Musculoskeletal: Reports: joint pain, muscle pain. Denies: joint swelling, muscle stiffness, neck pain. Skin: Reports: no symptoms. Neurological/Psychological: Reports: no symptoms. Hematologic/Endocrine: Denies: bruising, bleeding, polyuria, polydipsia. Immunological: Reports: no symptoms. All Other Systems: Reviewed and Negative Physical Exam Physical Exam General Appearance: well developed/nourished, alert, awake, mild distress Head: atraumatic Eyes: Bilateral: PERRL, EOMI. Ears, Nose, Throat: normal pharynx, normal ENT inspection, hearing grossly normal Neck: normal inspection, supple Cardiovascular/Respiratory: regular rate/rhythm Back: normal inspection Leg Left: normal range of motion, normal inspection Leg Right: normal range of motion, normal inspection Hip Left: normal range of motion, normal inspection Hip Right: normal range of motion, normal inspection Knee Left: normal inspection, limited range of motion, tender at insertion of left quadriceps tendon Knee Right: normal range of motion, normal inspection Foot Left: normal inspection, normal range of motion Foot Right: normal inspection, normal range of motion Neurologic/Tendon: normal sensation, normal motor functions, normal tendon functions Skin: intact, normal color, warm/dry Lymphatic: no anterior cervical manuel Comments: PATIENT ABLE TO STRAIGHT LEG RAISE Progress Differential Diagnosis: fracture, sprain, tendon injury Plan of Care: Orders Procedure Date/time Status Durable Medical Equipment 07/19 516 Active Diagnostic Imaging: Viewed by Me: Radiology Read. Discussed w/RAD: Radiology Read. Radiology Impression: PATIENT: ELBA BRANCH PRESENT AGE: 56 PATIENT ACCOUNT NO: [id number] : 61 LOCATION: [facility] ORDERING PHYSICIAN: PHUONG GILL MD SERVICE DATE: 07/19/16 EXAM TYPE: RAD - XRY-KNEE COMPLETE LEFT EXAMINATION: XR KNEE, LEFT CLINICAL INFORMATION: Severe left knee pain COMPARISON: None TECHNIQUE: Two views of the left knee. FINDINGS: No fracture or subluxation. Moderate medial compartment joint space narrowing. Small tricompartmental marginal osteophytes. Prominent enthesophytes at the patella and tibial tuberosity. No joint effusion. IMPRESSION: Tricompartmental degenerative changes, moderate at the medial compartment. DICTATED BY: TOMMY HERNANDEZ MD DATE/TIME DICTATED:07/19/16509 HOUSE FELLOW:THERESE DATE/TIME TRANSCRIBED:07/19/16509 CONFIDENTIAL, DO NOT COPY WITHOUT APPROPRIATE AUTHORIZATION. <Electronically signed in Other Vendor System> SIGNED BY: TOMMY HERNANDEZ MD 07/19/16514 Departure Departure Time of Disposition: 518 Disposition: HOME OR SELF CARE Condition: Stable Clinical Impression Primary Impression: Quadriceps tendinitis Referrals: MARIJA RODGERS,KIM (PCP/Family) FRANCINE KUMAR MD Additional Instructions: Use the knee immobilizer as directed. Ice, rest and elevate the knee. Please follow-up with the orthopedic doctor listed. Take the medications as directed. Departure Forms: Customer Survey General Discharge Information Prescriptions: Current Visit Scripts Naproxen 1 TAB PO BID PRN PAIN #30 TAB TAKE WITH FOOD Oxycodone HCl/Acetaminophen (Percocet 5-325 MG Tablet) 1 TAB PO BID #10 TAB Diclofenac Sodium (Voltaren) 1 GM TOP 4 TIMES/DAY #1 TUBE apply to affected area(s) Procedures Splinting Location: LEFT KNEE IMMOBILIZER
--- NOTE | 2016-07-19 05:15 | RADIOLOGY REPORT ---
EXAMINATION: XR KNEE, LEFT CLINICAL INFORMATION: Severe left knee pain COMPARISON: None TECHNIQUE: Two views of the left knee. FINDINGS: No fracture or subluxation. Moderate medial compartment joint space narrowing. Small tricompartmental marginal osteophytes. Prominent enthesophytes at the patella and tibial tuberosity. No joint effusion. IMPRESSION: Tricompartmental degenerative changes, moderate at the medial compartment.
[2016-07-19] MEDS ORDERED: PERCOCET 5-3251 EACH PO (05:20)
[2016-07-19] MEDS ORDERED: NAPROXEN500 M2 PO (05:20)
[2016-07-19] MEDS ORDERED: VOLTAREN100 GM TOP (06:08)
[2016-07-19 06:31] VITALS: BP 165/89
== END 2016-07-19 06:32 ==
LOC: ERH 03:58
DX: M76.9 Unspecified enthesopathy, lower limb, excluding foot (principal)
CPT/HCPCS: 73562-LT; 96372; J1885

== ENCOUNTER 2017-02-28 05:58 | Emergency (ER) | payer OTHER, MEDICARE ==
[~2017-02-28] VITALS: Ht 200.7 cm; Wt 103.9 kg
[~2017-02-28 05:58] MED LIST changes: +ASPIRIN81 M4 PO; +CARVEDILOL6.25 M1 PO; +COLACE100 M1 PO; +COREG12.5 M1 PO; +DAILY MULTIPLE1 EACH PO; +HYDRALAZINE HCL50 M1 PO; +ISOSORBIDE MONO60 M1 PO; +LIPITOR80 M1 PO; +NAPROXEN500 M2 PO; +OMEPRAZOLE40 M1 PO; +PERCOCET 5-3251 EACH PO; +VOLTAREN100 GM TOP
[2017-02-28 06:49] LABS: ABSOLUTE BASOPHIL COUNT 0 /CUMM (0.0-0.2); ABSOLUTE EOSINOPHIL COUNT 0.3 /CUMM (0.0-0.7); ABSOLUTE GRANULOCYTE CT 6.7 /CUMM (1.4-6.5); ABSOLUTE LYMPH COUNT 1.3 /CUMM (1.2-3.4); ABSOLUTE MONOCYTE COUNT 0.6 /CUMM (0.10-0.60); BASOPHIL % 0.4 % (0.0-2.0); EOSINOPHIL % 3.1 % (0-5); GRANULOCYTE % 75.5 % (42.2-75.2); HEMATOCRIT 29.3 % (42-52); MEAN CORPUSCULAR HGB 25.4 PG (27.0-31.0); MEAN CORPUSCULAR HGB CONC 31.8 G/DL (33.0-37.0); MEAN CORPUSCULAR VOLUME 79.8 FL (80.0-94.0); MEAN PLATELET VOLUME 7.4 FL (7.4-10.4); PLATELET COUNT 241 /CUMM (130-400); RBC DISTRIBUTION WIDTH 18.7 % (11.5-14.5); RED BLOOD CELL CT 3.67 /CUMM (4.70-6.10); WHITE BLOOD CELL COUNT 8.8 /CUMM (4.8-10.8)
--- NOTE | 2017-02-28 07:35 | ED GENERAL ADULT ---
History of Present Illness General Chief Complaint: General Adult Stated Complaint: MULTIPLE COMPLAINTS Source: patient, old records Exam Limitations: no limitations Vital Signs & Intake/Output Vital Signs & Intake/Output Vital Signs Date Time Temp Pulse Resp B/P B/P Pulse O2 O2 Flow FiO2 Mean Ox Delivery Rate 02/28 0954 98.0 75 20 184/99 02/28 0954 98.0 75 20 184/99 02/28 0954 98.0 75 20 184/99 02/28 0913 98.0 75 20 184/99 98 Room Air 02/28 0620 98.2 77 20 168/94 99 Room Air Room Air Allergies Coded Allergies: lisinopril (Severe, ANGIODEMA 04/12/16) gemfibrozil (From Lopid) (UNKNOWN 04/12/16) minocycline (UNKNOWN 04/12/16) gabapentin (Mild, BLACK DOTS ON TONGUE 04/13/16) Reconcile Medications Aspirin (Aspirin*) 81 MG TAB.CHEW 1 TAB PO DAILY Heart (Reported) Atorvastatin Calcium (Lipitor) 80 MG TABLET 1 TAB PO DAILY Cholesterol ( Reported) Carvedilol (Coreg) 12.5 MG TABLET 1 TAB PO BID HTN (Reported) Docusate Sodium (Colace) 100 MG CAPSULE 1 CAP PO BID PRN Bowel movement ( Reported) Hydralazine HCl 50 MG TABLET 1 TAB PO DAILY Blood pressure (Reported) Isosorbide Mononitrate (Isosorbide Mononitrate ER) 60 MG TAB.ER.24H 0.5 TAB PO DAILY Blood pressure (Reported) Multivitamin (Daily Multiple Vitamin) 1 EACH TABLET 1 TAB PO DAILY Supplement (Reported) Omeprazole 40 MG CAPSULE.DR 1 CAP PO DAILY GERD (Reported) Triage Note: 56YO MALE TO TRIAGE W/CO ABD PAIN SINCE YESTERDAY. STATES "IT'S MY PANCREATITIS AND I HAVE A PIC LINE WHERE I GIVE MYSELF MY ANTIBIOTICS" Triage Nurses Notes Reviewed? yes Onset: Abrupt Duration: day(s): (2) Timing: recent history Injury Environment: home Severity: mild, moderate No Modifying Factors: none Associated Symptoms: back pain HPI: This is a 56-year-old male with previous alcohol abuse, chronic pancreatitis currently on IV antibiotics for a blood sugar infection who presents to the ER with chief complaint of mid abdominal pain similar to his pancreatic episodes. He states he was discharged from after being sent there from a different hospital just before and is currently on antibiotics through PICC line 3 times a day. He states he was feeling fine until yesterday. He does not drink any longer. His due to follow-up with a surgeon at the [facility] after the antibiotics are completed for a Whipple procedure. Patient denies any illicit substance use. He states he was not discharged on any pain medications. It is unclear why he is on antibiotics till the end of February. Patient was admitted here in the end of January for acute pancreatitis at some point transferred to [place]. Past History Travel History Traveled to [facility] past 21 day No Medical History Any Pertinent Medical History? 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 No Review of Systems Review of Systems Constitutional: Denies: chills, fever. EENTM: Reports: no symptoms. Respiratory: Denies: cough, short of breath. Cardiovascular: Denies: chest pain, palpitations. GI: Reports: abdominal pain. Denies: nausea, vomiting. Genitourinary: Reports: no symptoms. Musculoskeletal: Denies: back pain. Skin: Reports: no symptoms. Neurological/Psychological: Reports: no symptoms. Hematologic/Endocrine: Denies: bruising, bleeding, polyuria, polydipsia. Immunologic/Allergic: Denies: splenectomy. All Other Systems: Reviewed and Negative Physical Exam Physical Exam General Appearance: well developed/nourished, alert, awake, anxious, mild distress, moderate distress Head: atraumatic, normal appearance Eyes: Bilateral: normal appearance, PERRL, EOMI. Ears, Nose, Throat: normal pharynx, hearing grossly normal Neck: normal inspection, supple, full range of motion Respiratory: normal breath sounds, chest non-tender, no respiratory distress Cardiovascular: regular rate/rhythm, normal peripheral pulses Gastrointestinal: normal bowel sounds, soft, tenderness (EPIGASTRIUM), NO REBOUND OR GUARDING Extremities: normal inspection, normal range of motion, no edema Neurologic/Psych: no motor/sensory deficits, awake, alert, oriented x 3, normal gait, normal mood/affect Skin: intact, normal color, warm/dry Core Measures ACS in differential dx? No CVA/TIA Diagnosis: No Sepsis Present: No Sepsis Focused Exam Completed? No Progress Differential Diagnoses I considered the following diagnoses in my evaluation of the patient: [ PANCREATITIS, HEMORRHAGE, INFECTION, BILIARY OBSTRUCTION, PUD, GERD] Plan of Care: Orders Procedure Date/time Status URINE DRUGS OF ABUSE 02/28 0741 Complete URINALYSIS 02/28 0741 Complete Add-on Test (ER Only) 02/28 0737 Active ETHANOL 02/28 0642 Complete LIPASE 02/28 06 Complete COMPREHENSIVE METABOLIC PANEL 02/28 627 Complete CBC WITHOUT DIFFERENTIAL 02/28 627 Complete AMYLASE 02/28 627 Complete Current Medications Sig/Julia Start time Last Medication Dose Stop Time Status Admin Cefazolin Sodium 2,000 MG ONCE ONE 02/28 1000 CAN (Kefzol-Ancef Inj) 02/28 1001 Laboratory Tests 02/28/17 0842: Urine Opiates Screen 188.00, Methadone Screen < 40, Barbiturate Screen < 60, Ur Phencyclidine Scrn < 6.00, Amphetamines Screen < 100, U Benzodiazepines Scrn < 85, Urine Cocaine Screen < 50, Urine Cannabis Screen < 5.00, Urine Color STRAW, Urine Clarity CLEAR, Urine pH 6.0, Ur Specific [place] 1.015, Urine Protein 30 H, Urine Ketones NEG, Urine Nitrite NEG, Urine Bilirubin NEG, Urine Urobilinogen 0.2, Ur Leukocyte Esterase NEG, Ur Microscopic SEDIMENT EXAMINED, Urine RBC 1-3, Urine WBC RARE, Ur Epithelial Cells MOD H, Urine Bacteria RARE H, Urine Hemoglobin NEG, Urine Glucose NEG 02/28/17 0642: Anion Gap 14, Estimated GFR > 60, BUN/Creatinine Ratio 15.6, Glucose 98, Calcium 9.3, Total Bilirubin 0.3, AST 14 L, ALT 18 L, Alkaline Phosphatase 169 H, Total Protein 7.5, Albumin 3.5, Globulin 4.0, Albumin/Globulin Ratio 0.9 L, Amylase 147 H, Lipase 890 H, CBC w Diff NO MAN DIFF REQ, RBC 3.67 L, MCV 79.8 L, MCH 25.4 L, RDW 18.7 H, MPV 7.4, Gran % 75.5 H, Lymphocytes % 14.5 L, Monocytes % 6.5, Eosinophils % 3.1, Basophils % 0.4, Absolute Granulocytes 6.7 H, Absolute Lymphocytes 1.3, Absolute Monocytes 0.6, Absolute Eosinophils 0.3, Absolute Basophils 0, PUBS MCHC 31.8 L, Serum Alcohol < 10.0 Medical discharge summary reviewed from [place] from January. Patient was diagnosed with a MSSA bloodstream infection and started on cefazolin 2 g every 8 hours. He is due to take that medication into the 07 of March and per the patient. Patient also had multiple imaging studies done of his pancreas. They determined he did not need a drain of an infected pseudocyst. He is following up with ID at the [facility] and is also due to have Whipple surgery after infection has been treated. Patient is feeling better after pain medication IV antibiotics and his blood pressure mediations. He was informed of his slightly elevated lipase he is stable for discharge to follow-up with the [facility]. He does not merit acute hospitalization at this time. Initial ED EKG: none Departure Departure Time of Disposition: 1045 Disposition: HOME OR SELF CARE Condition: Stable Clinical Impression Primary Impression: Pancreatitis Secondary Impressions: Bacteremia Referrals: Kallie Billy MD (PCP/Family) Additional Instructions: Please continue the IV antibiotics every 8 hours as he were previously instructed. Follow-up with the infectious disease specialist at the [facility]. Return as needed. Departure Forms: Customer Survey General Discharge Information Critical Care Note Critical Care Note Critical Care Time: non-applicable
[2017-02-28 11:02] VITALS: BP 155/90
== END 2017-02-28 11:14 ==
LOC: ERH 05:58
PROVIDERS: Emergency Medicine
DX: K85.90 Acute pancreatitis without necrosis or infection, unspecified (principal); R78.81 Bacteremia
CPT/HCPCS: 80307; 81001; 96374; 96375; 96376; G0480; J0690